=== PATIENT | female | born 1945 | race Caucasian/White ===

== ENCOUNTER 2017-02-04 09:19 | Day surgery (SDC) | payer MEDICARE, BC ==
[2017-02-04] MEDS ORDERED: PROPOFOL 10 MG/ML VIAL IV ONE (15:36)
[2017-02-04] MEDS ORDERED: LIDOCAINE 2% MDV (20MG/ML) 20ML VIAL IV ONE (15:36)
--- NOTE | 2017-02-06 11:00 | Operative Note ---
DATE OF SURGERY: 02/04/2017 REFERRING PHYSICIAN: Suraj Reyez DO PREOPERATIVE DIAGNOSIS: See below. POSTOPERATIVE DIAGNOSIS: See below. PROCEDURE: COLONOSCOPY to the cecum. INDICATION: History of adenomatous polyps in the past. Patient also with previous episode of possible colitis, which resolved with antibiotics. Colonoscopy is performed at this time for further evaluation. Intravenous sedation was administered by the Department of Anesthesiology and included Diprivan titrated to effect. PROCEDURE: Following informed consent from this alert individual, including a discussion of the risks and benefits of the procedure and an opportunity for the patient to ask questions, the patient was placed in the left lateral decubitus position. A digital rectal examination was performed. No abnormalities were detected. Following this, an Olympus [id number] video colonoscope was inserted into the rectum without resistance. The rectal mucosa had a normal appearance, with normal folds and distensibility. The colonoscope was advanced up through the bowel to the level of the cecum without much difficulty. Throughout the bowel, the mucosa appeared normal, the folds are normal and the bowel is fairly well distensible. Scattered diverticula were noted in the sigmoid colon. The cecum was defined by noting the appendiceal orifice and ileocecal valve. Retroflexion of the cecum was endoscopically unremarkable. From the base of the cecum, the colonoscope was then withdrawn. No additional abnormalities were detected. Again, diverticulosis was noted in the sigmoid colon. There was a 5-6 mm polyp noted at the rectosigmoid junction, which was sessile. It was removed with cold snare polypectomy and suctioned through the endoscope into the collection trap. The endoscope was then retroflexed upon itself and the rectum and distal rectum examined from above was unremarkable. The endoscope was straightened and removed. The patient tolerated the procedure well and was returned to the recovery area in stable condition. IMPRESSION: 1. A 5-6 mm rectosigmoid polyp removed with cold snare polypectomy. 2. Sigmoid diverticulosis. RECOMMENDATIONS: Patient was advised she should receive a copy of her pathology report at home in the next 2 to 3 weeks. If not, she was asked to call my office to review results of testing today. Further recommendations will be forthcoming pending those results. Followup will also be with Dr. Suraj Reyez. As always, thank you for allowing me to participate in the care of your patient. Darrick Limon DO CC: DO CHARLES Leone
== END 2017-02-04 11:40 | disposition home or self-care (01) ==
LOC: HOP 09:19
PROVIDERS: ATTEND Internal Medicine Gastroenterology
DX: Z86.010 Personal history of colon polyps (principal); D12.7 Benign neoplasm of rectosigmoid junction; K57.30 Diverticulosis of large intestine without perforation or abscess without bleeding